=== PATIENT | male | born 1960 | race African-American/Black ===

== ENCOUNTER 2016-11-02 21:48 | Emergency (ER) | payer MEDICAID, OTHER ==
[~2016-11-02] VITALS: Ht 180.3 cm; Wt 77.3 kg
[~2016-11-02 21:48] MED LIST: QUET50TA PO
[2016-11-03] MEDS ORDERED: QUEtiapine FUMARATE 100 MG TABLET PO ONE (01:30)
[2016-11-03] MEDS ORDERED: HYDROCODONE/ACETAMINOPHEN 5-325 MG TABLET PO ONE (02:15)
[2016-11-03 02:44] VITALS: BP 134/69
== END 2016-11-03 02:47 | disposition home or self-care (01) ==
LOC: EMS 21:49
DX: S82.301A Unspecified fracture of lower end of right tibia, initial encounter for closed fracture (principal); S82.831A Other fracture of upper and lower end of right fibula, initial encounter for closed fracture; F17.210 Nicotine dependence, cigarettes, uncomplicated; W01.0XXA Fall on same level from slipping, tripping and stumbling without subsequent striking against object, initial encounter; Y93.89 Activity, other specified; Y92.89 Other specified places as the place of occurrence of the external cause; Y99.8 Other external cause status
CPT/HCPCS: 29515; 99284

== ENCOUNTER 2016-11-05 11:34 | Emergency (ER) | payer MEDICAID ==
[~2016-11-05] VITALS: Ht 180.3 cm; Wt 72.7 kg
[2016-11-05] MEDS ORDERED: ACETAMINOPHEN/CODEINE 300-30 MG TABLET PO ONE (13:15)
[2016-11-05 13:55] VITALS: BP 124/70
== END 2016-11-05 14:03 | disposition home or self-care (01) ==
LOC: EMS 11:35
DX: M25.471 Effusion, right ankle (principal); R26.2 Difficulty in walking, not elsewhere classified; F17.210 Nicotine dependence, cigarettes, uncomplicated
CPT/HCPCS: 29580; 99283

== ENCOUNTER 2016-12-10 17:49 | Emergency (ER) | payer MEDICAID ==
[~2016-12-10] VITALS: Ht 180.3 cm; Wt 73.6 kg
[2016-12-10 18:12] VITALS: BP 120/80
[2016-12-10] MEDS ORDERED: IBUPROFEN 800 MG TABLET PO ONE (19:00)
== END 2016-12-10 19:06 | disposition home or self-care (01) ==
LOC: EMS 17:52
DX: M25.571 Pain in right ankle and joints of right foot (principal); F17.210 Nicotine dependence, cigarettes, uncomplicated
CPT/HCPCS: 99283

== ENCOUNTER 2017-09-09 18:27 | Inpatient (IN) | payer MEDICAID ==
[~2017-09-09] VITALS: Ht 180.3 cm; Wt 70.3 kg
[2017-09-09] MEDS ORDERED: MAGNESIUM SULFATE 2 GM, MVI, ADULT NO.1 WITH VIT K 10 ML, THIAMINE HCL 100 MG, FOLIC AC... IV ONE ×5 (19:00)
[2017-09-09 19:37] LABS: BASOPHILS % (AUTO) 0.7 % (0.0-2.0); EOSINOPHILS % (AUTO) 0.1 % (1.0-6.0); HEMATOCRIT 35.8 % (41-53); LYMPHOCYTES # (AUTO) 0.6 K/uL (1.0-4.8); LYMPHOCYTES % (AUTO) 15.6 % (22.0-44.0); MEAN CORPUSCULAR HEMOGLOBIN 27.4 pg (26.0-34.0); MEAN CORPUSCULAR HGB CONC 33.7 G/dL (31.0-37.0); MEAN CORPUSCULAR VOLUME 81 fL (80-100); MONOCYTES # (AUTO) 0.3 K/uL (0.1-1.0); MONOCYTES % (AUTO) 9.1 % (2.0-9.0); NEUTROPHILS # (AUTO) 2.8 K/uL (1.8-7.7); NEUTROPHILS % (AUTO) 74.5 % (40.0-70.0); RED CELL DISTRIBUTION WIDTH 14.4 % (11.5-14.5)
[2017-09-09 19:43] LABS: PLATELET COUNT (AUTO) 71 K/uL (150-450)
[2017-09-09 20:04] LABS: ALANINE AMINOTRANSFERASE 59 U/L (12-78); ALBUMIN 3.8 g/dL (3.4-5.0); ALKALINE PHOSPHATASE 156 U/L (46-116); ANION GAP 14 mmol/L (8-16); ASPARTATE AMINOTRANSFERASE 149 U/L (15-37); BILIRUBIN,TOTAL 0.7 mg/dL (0.1-1.0); CALCIUM, TOTAL 8.7 mg/dL (8.8-10.5); CARBON DIOXIDE 25 mmol/L (22-29); CHLORIDE 85 mmol/L (98-107); CREATININE 0.67 mg/dL (0.60-1.30); GLOMERULAR FILTR. RATE CALC > 60 mL/min (>60); GLUCOSE,RANDOM 80 mg/dL (70-110); LIPASE 147 U/L (73-393); POTASSIUM 3.9 mmol/L (3.5-5.1); TOTAL PROTEIN, SERUM 8.3 g/dL (6.4-8.2); UREA NITROGEN, BLOOD 7 mg/dL (7-18)
[2017-09-09 20:11] LABS: SODIUM SERUM 124 mmol/L (136-145)
[2017-09-09] MEDS ORDERED: ACETAMINOPHEN 325 MG TABLET PO PRN (20:45)
[2017-09-09] MEDS ORDERED: 0.9% SODIUM CHLORIDE 10 ML SYRINGE IVP PRN (20:45)
[2017-09-09] MEDS ORDERED: ONDANSETRON HCL 4 MG/2 ML VIAL IVP PRN (20:45)
[2017-09-09 21:16] LABS: ANION GAP 16 mmol/L (8-16); CALCIUM, TOTAL 8.3 mg/dL (8.8-10.5); CARBON DIOXIDE 22 mmol/L (22-29); CHLORIDE 88 mmol/L (98-107); CREATININE 0.57 mg/dL (0.60-1.30); GLOMERULAR FILTR. RATE CALC > 60 mL/min (>60); GLUCOSE,RANDOM 67 mg/dL (70-110); POTASSIUM 3.5 mmol/L (3.5-5.1); SODIUM SERUM 126 mmol/L (136-145); UREA NITROGEN, BLOOD 8 mg/dL (7-18)
[2017-09-09 21:19] LABS: ALANINE AMINOTRANSFERASE 49 U/L (12-78); ALBUMIN 3.5 g/dL (3.4-5.0); ALKALINE PHOSPHATASE 142 U/L (46-116); ASPARTATE AMINOTRANSFERASE 127 U/L (15-37); BILIRUBIN,TOTAL 0.7 mg/dL (0.1-1.0); TOTAL PROTEIN, SERUM 7.5 g/dL (6.4-8.2)
[2017-09-09 21:45] VITALS: BP 117/85
[2017-09-09] MEDS ORDERED: MAGNESIUM SULFATE 2 GM, MVI, ADULT NO.1 WITH VIT K 10 ML, THIAMINE HCL 100 MG, FOLIC AC... IV SCH ×5 (22:45)
[2017-09-09] MEDS ORDERED: LORazepam 2 MG/ML VIAL IVP PRN (22:45)
[2017-09-09 23:13] LABS: CKMB RELATIVE INDEX 1.5 % (0.0-4.0); CREATINE KINASE MB 14.7 ng/mL (0-5); CREATINE KINASE, TOTAL 959 U/L (39-308)
[2017-09-10] VITALS: BP 127/80
[2017-09-10] MEDS ORDERED: MORPHINE SULFATE 10 MG/ML SYRINGE IVP PRN
[2017-09-10] MEDS ORDERED: ACETAMINOPHEN 650 MG/20.3 ML SOLUTION UDCUP PO PRN
[2017-09-10] MEDS ORDERED: ZOLPIDEM TARTRATE 10 MG TABLET PO PRN
[2017-09-10 01:00] VITALS: BP 186/121
[2017-09-10] MEDS: SODIUM CHLORIDE 0.9% 1,000 ML IV SCH ×3 (01:00→16:29)
[2017-09-10] MEDS: HYDROCODONE/ACETAMINOPHEN 5-325 MG TABLET PO PRN ×2 (01:00→12:32)
[2017-09-10 04:00] VITALS: BP 113/67
[2017-09-10 05:23] LABS: BASOPHILS % (AUTO) 0.6 % (0.0-2.0); EOSINOPHILS % (AUTO) 0.3 % (1.0-6.0); HEMOGLOBIN 10.6 g/dL (13.5-17.5); LYMPHOCYTES # (AUTO) 1.2 K/uL (1.0-4.8); LYMPHOCYTES % (AUTO) 25.4 % (22.0-44.0); MEAN CORPUSCULAR HEMOGLOBIN 27.7 pg (26.0-34.0); MEAN CORPUSCULAR HGB CONC 34.1 G/dL (31.0-37.0); MEAN CORPUSCULAR VOLUME 81 fL (80-100); MONOCYTES # (AUTO) 0.6 K/uL (0.1-1.0); MONOCYTES % (AUTO) 12.4 % (2.0-9.0); NEUTROPHILS # (AUTO) 2.9 K/uL (1.8-7.7); NEUTROPHILS % (AUTO) 61.3 % (40.0-70.0); PLATELET COUNT (AUTO) 61 K/uL (150-450); RED BLOOD CELL COUNT(AUTO) 3.82 MIL/uL (4.50-5.90); RED CELL DISTRIBUTION WIDTH 14.5 % (11.5-14.5)
[2017-09-10 05:49] LABS: ALANINE AMINOTRANSFERASE 46 U/L (12-78); ALBUMIN 3.3 g/dL (3.4-5.0); ALKALINE PHOSPHATASE 138 U/L (46-116); ANION GAP 13 mmol/L (8-16); ASPARTATE AMINOTRANSFERASE 119 U/L (15-37); BILIRUBIN,TOTAL 0.7 mg/dL (0.1-1.0); CALCIUM, TOTAL 8.1 mg/dL (8.8-10.5); CARBON DIOXIDE 25 mmol/L (22-29); CHLORIDE 91 mmol/L (98-107); CREATININE 0.72 mg/dL (0.60-1.30); GLOMERULAR FILTR. RATE CALC > 60 mL/min (>60); GLUCOSE,RANDOM 71 mg/dL (70-110); SODIUM SERUM 129 mmol/L (136-145); TOTAL PROTEIN, SERUM 7.1 g/dL (6.4-8.2); UREA NITROGEN, BLOOD 9 mg/dL (7-18)
[2017-09-10 08:00] VITALS: BP 151/91
[2017-09-10] MEDS: HEPARIN SODIUM,PORCINE 5,000 UNITS/ML VIAL SQ SCH ×3 (08:08→16:28)
[2017-09-10] MEDS ORDERED: PANTOPRAZOLE SODIUM 40 MG DR TABLET PO SCH (09:00)
[2017-09-10] MEDS ORDERED: PANTOPRAZOLE SODIUM 40 MG/VIAL IVP SCH (09:00)
[2017-09-10 12:00] VITALS: BP 144/83
[2017-09-10 16:00] VITALS: BP 136/83
[2017-09-10] MEDS ORDERED: QUEtiapine FUMARATE 100 MG TABLET PO SCH (16:00)
== END 2017-09-10 18:50 | disposition home or self-care (01) | DRG 815 ==
LOC: EMS 18:46 → ICU 21:00
PROVIDERS: ADMIT Internal Medicine; ATTEND Internal Medicine
DX: T68.XXXA Hypothermia, initial encounter (principal); E87.1 Hypo-osmolality and hyponatremia; F10.20 Alcohol dependence, uncomplicated; E86.0 Dehydration; F17.210 Nicotine dependence, cigarettes, uncomplicated; X31.XXXA Exposure to excessive natural cold, initial encounter; Z59.0 Homelessness
CPT/HCPCS: 72100; 82948; 83735; 87081; 93005; 96365; 99291; C9113; G0480; J1644; J3411; J3475; J3490; J7030

== ENCOUNTER 2017-09-14 12:23 | Inpatient (IN) | payer MEDICAID ==
[~2017-09-14] VITALS: Ht 170.2 cm; Wt 82.5 kg
[2017-09-14] MEDS ORDERED: LORazepam 2 MG/ML VIAL ONE (12:37)
[2017-09-14] MEDS ORDERED: IOVERSOL 350 MG/ML 100 ML VIAL ONE (12:43)
[2017-09-14 13:14] LABS: ANION GAP 13 mmol/L (8-16); CALCIUM, TOTAL 8.4 mg/dL (8.8-10.5); CARBON DIOXIDE 27 mmol/L (22-29); CHLORIDE 92 mmol/L (98-107); CREATININE 0.55 mg/dL (0.60-1.30); GLOMERULAR FILTR. RATE CALC > 60 mL/min (>60); GLUCOSE,RANDOM 221 mg/dL (70-110); POTASSIUM 3.3 mmol/L (3.5-5.1); SODIUM SERUM 132 mmol/L (136-145); UREA NITROGEN, BLOOD 5 mg/dL (7-18)
[2017-09-14 13:19] LABS: HEMATOCRIT 32.6 % (41-53); HEMOGLOBIN 10.9 g/dL (13.5-17.5); MEAN CORPUSCULAR HEMOGLOBIN 27.5 pg (26.0-34.0); MEAN CORPUSCULAR HGB CONC 33.4 G/dL (31.0-37.0); MEAN CORPUSCULAR VOLUME 82 fL (80-100); RED BLOOD CELL COUNT(AUTO) 3.97 MIL/uL (4.50-5.90); RED CELL DISTRIBUTION WIDTH 14.9 % (11.5-14.5)
[2017-09-14 13:20] LABS: AMMONIA 20 umol/L (11-32)
[2017-09-14 13:23] LABS: B-TYPE NATRIURETIC PEPTIDE 11 pg/mL (0-100); TROPONIN I < 0.02 ng/mL (0.00-0.05)
[2017-09-14 13:25] LABS: INR 1.4 (0.9-1.1); PROTHROMBIN TIME 14.1 SEC (9.4-11.6)
[2017-09-14] MEDS ORDERED: SODIUM CHLORIDE 0.9% 1,000 ML IV ONE ×2 (13:30→15:30)
[2017-09-14 13:38] LABS: ALANINE AMINOTRANSFERASE 73 U/L (12-78); ALBUMIN 3.6 g/dL (3.4-5.0); ALKALINE PHOSPHATASE 166 U/L (46-116); ASPARTATE AMINOTRANSFERASE 204 U/L (15-37); BILIRUBIN,TOTAL 0.7 mg/dL (0.1-1.0); CKMB RELATIVE INDEX 0.8 % (0.0-4.0); CREATINE KINASE MB 5.1 ng/mL (0-5); CREATINE KINASE, TOTAL 627 U/L (39-308)
[2017-09-14 13:39] LABS: BASOPHILS % (MANUAL) 1 % (0-2); EOSINOPHILS % (MANUAL) 1 % (1-6); LYMPHOCYTES % (MANUAL) 23 % (22-44); MONOCYTES % (MANUAL) 11 % (2-9); SEGMENTED NEUTROPHILS % 64 % (40-70)
[2017-09-14 13:42] LABS: PLATELET COUNT (AUTO) 70 K/uL (150-450)
[2017-09-14 13:46] LABS: LACTIC ACID 4.2 mmol/L (0.4-2.0)
[2017-09-14 14:29] LABS: ERYTHROCYTE SEDIMENTATION RATE 25 MM/HR (0-15)
[2017-09-14 14:51] LABS: AMPHET/METH SCREEN,URINE NEGATIVE (NEGATIVE); BARBITURATE SCREEN, URINE NEGATIVE (NEGATIVE); BENZODIAZEPINES SCREEN,URINE NEGATIVE (NEGATIVE); CANNABINOID SCREEN,URINE NEGATIVE (NEGATIVE); COCAINE SCREEN,URINE NEGATIVE (NEGATIVE); METHADONE SCREEN, URINE NEGATIVE (NEGATIVE); OPIATE SCREEN,URINE NEGATIVE (NEGATIVE); PHENCYCLIDINE SCREEN,URINE NEGATIVE (NEGATIVE)
[2017-09-14 15:10] LABS: APPEARANCE,URINE CLEAR (CLEAR); BILIRUBIN,URINE NEGATIVE (NEGATIVE); GLUCOSE, URINE (UA) >=1000 mg/dL (NEGATIVE); KETONES,URINE 15 mg/dL (NEGATIVE); LEUKOCYTE ESTERASE ,URINE SMALL (NEGATIVE); OCCULT BLOOD,URINE NEGATIVE (NEGATIVE); PROTEIN,URINE NEGATIVE (NEGATIVE); UROBILINOGEN,URINE 0.2 mg/dL (<=1.0)
[2017-09-14] MEDS ORDERED: VANCOMYCIN HCL 1 GM/D5% WATER 200 ML IV ONE (15:30)
[2017-09-14 16:05] LABS: NITRATE,URINE NEGATIVE (NEGATIVE); RBC,URINE 0-2 /HPF (0-2)
[2017-09-14 16:06] LABS: BACTERIA,URINE Few /HPF (None Seen); SQUAMOUS EPITHELIAL CELL,UR Few /LPF (None Seen)
[2017-09-14] MEDS ORDERED: MAGNESIUM HYDROXIDE SUSPENSION 30 ML UDCUP PO PRN (16:15)
[2017-09-14] MEDS ORDERED: ONDANSETRON HCL 4 MG/2 ML VIAL IVP PRN (16:15)
[2017-09-14] MEDS ORDERED: HYDROCODONE/ACETAMINOPHEN 5-325 MG TABLET PO PRN (16:15)
[2017-09-14] MEDS ORDERED: ACETAMINOPHEN 325 MG TABLET PO PRN (16:15)
[2017-09-14] MEDS ORDERED: POTASSIUM CHLORIDE 20 MEQ ER TABLET PO PRN (16:15)
[2017-09-14] MEDS ORDERED: MAGNESIUM SULFATE 2 GM, MVI, ADULT NO.1 WITH VIT K 10 ML, THIAMINE HCL 100 MG, FOLIC AC... IV ONE ×5 (16:15)
[2017-09-14] MEDS ORDERED: ZOLPIDEM TARTRATE 5 MG TABLET PO PRN (16:15)
[2017-09-14] MEDS ORDERED: BISACODYL 10 MG RECTAL RECTAL SUPPOSITORY PR PRN (16:15)
[2017-09-14 18:38] VITALS: BP 113/72
[2017-09-14 19:38] VITALS: BP 103/71
[2017-09-14] MEDS ORDERED: SODIUM CHLORIDE 0.9% 50 ML ONE ×2 (19:59→21:41)
[2017-09-14] MEDS: DOCUSATE SODIUM 100 MG CAPSULE PO SCH (20:05)
[2017-09-14] MEDS: POTASSIUM CHL 10 MEQ/WATER 50 ML IV PRN ×2 (20:11→21:43)
[2017-09-14 23:58] VITALS: BP 111/54
[2017-09-15] MEDS: HEPARIN SODIUM,PORCINE 5,000 UNITS/ML VIAL SQ SCH ×4 (00:14→16:00)
[2017-09-15] MEDS: POTASSIUM CHL 10 MEQ/WATER 50 ML IV PRN (00:14)
[2017-09-15 04:48] VITALS: BP 122/65
[2017-09-15 06:22] LABS: BASOPHILS % (AUTO) 0.9 % (0.0-2.0); EOSINOPHILS % (AUTO) 0.4 % (1.0-6.0); HEMATOCRIT 26.1 % (41-53); HEMOGLOBIN 9.1 g/dL (13.5-17.5); LYMPHOCYTES % (AUTO) 21.4 % (22.0-44.0); MEAN CORPUSCULAR HEMOGLOBIN 28.3 pg (26.0-34.0); MEAN CORPUSCULAR HGB CONC 34.9 G/dL (31.0-37.0); MEAN CORPUSCULAR VOLUME 81 fL (80-100); MONOCYTES # (AUTO) 0.5 K/uL (0.1-1.0); MONOCYTES % (AUTO) 10.2 % (2.0-9.0); NEUTROPHILS # (AUTO) 3.2 K/uL (1.8-7.7); NEUTROPHILS % (AUTO) 67.1 % (40.0-70.0); PLATELET COUNT (AUTO) 67 K/uL (150-450); RED BLOOD CELL COUNT(AUTO) 3.21 MIL/uL (4.50-5.90); RED CELL DISTRIBUTION WIDTH 14.7 % (11.5-14.5)
[2017-09-15] MEDS: MORPHINE SULFATE 2 MG/ML SYRINGE IVP PRN ×2 (06:45→10:56)
[2017-09-15 06:56] LABS: ANION GAP 13 mmol/L (8-16); CARBON DIOXIDE 23 mmol/L (22-29); CHLORIDE 99 mmol/L (98-107); CREATININE 0.64 mg/dL (0.60-1.30); GLOMERULAR FILTR. RATE CALC > 60 mL/min (>60); GLUCOSE,RANDOM 71 mg/dL (70-110); POTASSIUM 3.9 mmol/L (3.5-5.1); SODIUM SERUM 135 mmol/L (136-145); UREA NITROGEN, BLOOD 6 mg/dL (7-18)
[2017-09-15 07:26] VITALS: BP 121/76
[2017-09-15] MEDS ORDERED: CefTRIAXone SODIUM 1 GM in DEXTROSE 5%-WATER 10 ML IV SCH (08:00)
[2017-09-15] MEDS: DOCUSATE SODIUM 100 MG CAPSULE PO SCH (08:46)
[2017-09-15] MEDS ORDERED: PANTOPRAZOLE SODIUM 40 MG DR TABLET PO SCH (09:00)
[2017-09-15 10:51] VITALS: BP 123/75
[2017-09-15 15:48] VITALS: BP 135/87
== END 2017-09-15 17:55 | disposition home or self-care (01) | DRG 775 ==
LOC: EMS 12:24 → 5N 16:21
PROVIDERS: ADMIT Internal Medicine; ATTEND Internal Medicine
DX: F10.129 Alcohol abuse with intoxication, unspecified (principal); G92 Toxic encephalopathy; T68.XXXA Hypothermia, initial encounter; D61.818 Other pancytopenia; D68.9 Coagulation defect, unspecified; E87.2 Acidosis; D69.59 Other secondary thrombocytopenia; E87.1 Hypo-osmolality and hyponatremia; E87.6 Hypokalemia; F20.9 Schizophrenia, unspecified; K70.9 Alcoholic liver disease, unspecified; F17.210 Nicotine dependence, cigarettes, uncomplicated; N39.0 Urinary tract infection, site not specified; Y90.8 Blood alcohol level of 240 mg/100 ml or more; Z59.0 Homelessness; Z79.899 Other long term (current) drug therapy
CPT/HCPCS: 51702; 70496; 72125; 83605; 85651; 87040; 87081; 87086; 87205; 93005; 96361; 96365; 96366; 96368; 99291; G0480; J0696; J1644; J2060; J2270; J3370; J3411; J3475; J3480; J3490; J7030; J7050; J7060

== ENCOUNTER 2017-10-21 07:31 | Emergency (ER) | payer MEDICAID ==
[~2017-10-21] VITALS: Ht 177.8 cm; Wt 77.3 kg
[2017-10-21 07:47] LABS: GLUCOSE,POINT OF CARE 63 MG/DL (70-110)
[2017-10-21] MEDS ORDERED: BACITRACIN 0.9 GM PACKET OINTMENT TP ONE (08:30)
[2017-10-21 13:50] VITALS: BP 120/72
== END 2017-10-21 14:20 | disposition home or self-care (01) ==
LOC: EMS 07:32
DX: F10.229 Alcohol dependence with intoxication, unspecified (principal); M25.571 Pain in right ankle and joints of right foot; F17.210 Nicotine dependence, cigarettes, uncomplicated; Y90.9 Presence of alcohol in blood, level not specified
CPT/HCPCS: 82962; 99284

== ENCOUNTER 2017-10-21 19:58 | Emergency (ER) | payer MEDICAID | END 2017-10-21 20:37 | disposition left against medical advice (07) | LOC: EMS 19:59 | DX: M54.9 Dorsalgia, unspecified (principal); Z53.21 Procedure and treatment not carried out due to patient leaving prior to being seen by health care provider ==

== ENCOUNTER 2017-10-31 16:19 | Inpatient (IN) | payer MEDICAID ==
[~2017-10-31] VITALS: Ht 167.6 cm; Wt 71.0 kg
[2017-10-31] MEDS ORDERED: SODIUM CHLORIDE 0.9% 1,000 ML IV ONE ×2 (17:00→17:45)
[2017-10-31 17:12] LABS: BASOPHILS % (AUTO) 0.3 % (0.0-2.0); EOSINOPHILS % (AUTO) 0.4 % (1.0-6.0); HEMATOCRIT 24.8 % (41-53); HEMOGLOBIN 8.7 g/dL (13.5-17.5); LYMPHOCYTES # (AUTO) 1.5 K/uL (1.0-4.8); LYMPHOCYTES % (AUTO) 17.9 % (22.0-44.0); MEAN CORPUSCULAR HEMOGLOBIN 29.1 pg (26.0-34.0); MEAN CORPUSCULAR HGB CONC 35.1 G/dL (31.0-37.0); MEAN CORPUSCULAR VOLUME 83 fL (80-100); MONOCYTES # (AUTO) 1.2 K/uL (0.1-1.0); MONOCYTES % (AUTO) 14.8 % (2.0-9.0); NEUTROPHILS # (AUTO) 5.5 K/uL (1.8-7.7); NEUTROPHILS % (AUTO) 66.6 % (40.0-70.0); RED BLOOD CELL COUNT(AUTO) 2.99 MIL/uL (4.50-5.90); RED CELL DISTRIBUTION WIDTH 15.9 % (11.5-14.5)
[2017-10-31 17:24] LABS: ALANINE AMINOTRANSFERASE 61 U/L (12-78); ALBUMIN 3.2 g/dL (3.4-5.0); ALKALINE PHOSPHATASE 172 U/L (46-116); ASPARTATE AMINOTRANSFERASE 127 U/L (15-37); BILIRUBIN,TOTAL 1.7 mg/dL (0.1-1.0); CALCIUM, TOTAL 8.5 mg/dL (8.8-10.5); CARBON DIOXIDE 23 mmol/L (22-29); CHLORIDE 78 mmol/L (98-107); CREATININE 0.83 mg/dL (0.60-1.30); GLOMERULAR FILTR. RATE CALC > 60 mL/min (>60); GLUCOSE,RANDOM 69 mg/dL (70-110); LIPASE 751 U/L (73-393); POTASSIUM 3.1 mmol/L (3.5-5.1); UREA NITROGEN, BLOOD 7 mg/dL (7-18)
[2017-10-31 17:35] LABS: PLATELET COUNT (AUTO) 93 K/uL (150-450); PLATELET MORPHOLOGY COMMENT LARGE PLTS PRESENT
[2017-10-31 17:37] LABS: ANION GAP 15 mmol/L (8-16); SODIUM SERUM 116 mmol/L (136-145)
[2017-10-31] MEDS ORDERED: QUEtiapine FUMARATE 25 MG TABLET PO ONE (18:15)
[2017-10-31] MEDS ORDERED: POTASSIUM CHLORIDE 20 MEQ ER TABLET PO ONE (18:30)
[2017-10-31] MEDS ORDERED: 0.9% SODIUM CHLORIDE 10 ML SYRINGE IVP PRN (19:15)
[2017-10-31] MEDS ORDERED: ACETAMINOPHEN 325 MG TABLET PO PRN ×2 (19:15→21:15)
[2017-10-31] MEDS ORDERED: ONDANSETRON HCL 4 MG/2 ML VIAL IVP PRN ×2 (19:15→21:15)
[2017-10-31 19:28] LABS: GLUCOSE,POINT OF CARE 96 MG/DL (70-110)
[2017-10-31 21:11] VITALS: BP 120/80
[2017-10-31] MEDS ORDERED: MAGNESIUM SULFATE 2 GM in DEXTROSE 5%-WATER 50 ML IV PRN (21:15)
[2017-10-31] MEDS ORDERED: MAGNESIUM OXIDE 400 MG TABLET PO PRN (21:15)
[2017-10-31] MEDS ORDERED: ALBUTEROL SULFATE 2.5 MG/0.5 ML NEB SOLUTION NEB PRN (21:15)
[2017-10-31] MEDS ORDERED: LORazepam 2 MG/ML VIAL IVP PRN (21:15)
[2017-10-31] MEDS ORDERED: MAGNESIUM SULFATE 4 GM/WATER 100 ML IV PRN (21:15)
[2017-10-31] MEDS ORDERED: MAGNESIUM HYDROXIDE SUSPENSION 30 ML UDCUP PO PRN (21:15)
[2017-10-31] MEDS: SODIUM CHLORIDE 0.9% 1,000 ML IV SCH (21:56)
[2017-10-31 22:33] LABS: ALBUMIN 2.8 g/dL (3.4-5.0)
[2017-10-31 22:59] LABS: MAGNESIUM 1.4 mg/dL (1.80-2.40)
[2017-11-01 00:02] VITALS: BP 97/53
[2017-11-01 04:21] VITALS: BP 110/73
[2017-11-01 07:28] LABS: BASOPHILS % (AUTO) 0.7 % (0.0-2.0); EOSINOPHILS % (AUTO) 0.6 % (1.0-6.0); HEMOGLOBIN 7.9 g/dL (13.5-17.5); LYMPHOCYTES # (AUTO) 1.1 K/uL (1.0-4.8); LYMPHOCYTES % (AUTO) 16.3 % (22.0-44.0); MEAN CORPUSCULAR HEMOGLOBIN 29.9 pg (26.0-34.0); MEAN CORPUSCULAR HGB CONC 35.7 G/dL (31.0-37.0); MEAN CORPUSCULAR VOLUME 84 fL (80-100); MONOCYTES # (AUTO) 0.8 K/uL (0.1-1.0); MONOCYTES % (AUTO) 12.5 % (2.0-9.0); NEUTROPHILS # (AUTO) 4.6 K/uL (1.8-7.7); NEUTROPHILS % (AUTO) 69.9 % (40.0-70.0); PLATELET COUNT (AUTO) 95 K/uL (150-450); RED BLOOD CELL COUNT(AUTO) 2.63 MIL/uL (4.50-5.90); RED CELL DISTRIBUTION WIDTH 16.4 % (11.5-14.5)
[2017-11-01 07:38] LABS: ANION GAP 10 mmol/L (8-16); CALCIUM, TOTAL 8.2 mg/dL (8.8-10.5); CARBON DIOXIDE 27 mmol/L (22-29); CHLORIDE 87 mmol/L (98-107); CREATININE 0.77 mg/dL (0.60-1.30); GLOMERULAR FILTR. RATE CALC > 60 mL/min (>60); GLUCOSE,RANDOM 91 mg/dL (70-110); POTASSIUM 3.2 mmol/L (3.5-5.1); UREA NITROGEN, BLOOD 5 mg/dL (7-18)
[2017-11-01 07:44] VITALS: BP 110/57
[2017-11-01] MEDS: PANTOPRAZOLE SODIUM 40 MG DR TABLET PO SCH (07:47)
[2017-11-01] MEDS: MULTIVITAMINS WITH MINERALS, THERAPEUTIC TABLET PO SCH (07:47)
[2017-11-01] MEDS: DOCUSATE SODIUM 100 MG CAPSULE PO SCH ×2 (07:47→21:00)
[2017-11-01 07:57] LABS: SODIUM SERUM 124 mmol/L (136-145)
[2017-11-01 07:58] LABS: GLUCOMETER DEV NAME(LOC) 5S 1M; GLUCOSE,POINT OF CARE 126 MG/DL (70-110)
[2017-11-01] MEDS: QUEtiapine FUMARATE 25 MG TABLET PO SCH ×2 (10:14→21:01)
[2017-11-01 11:21] VITALS: BP 116/72
[2017-11-01] MEDS: SODIUM CHLORIDE 0.9% 1,000 ML IV SCH (12:27)
[2017-11-01] MEDS: POTASSIUM CHLORIDE 20 MEQ ER TABLET PO PRN (13:52)
[2017-11-01 15:39] VITALS: BP 117/74
[2017-11-01 20:04] VITALS: BP 116/76
[2017-11-02 00:11] VITALS: BP 122/71
[2017-11-02] MEDS: SODIUM CHLORIDE 0.9% 1,000 ML IV SCH ×2 (05:22→21:07)
[2017-11-02 05:32] VITALS: BP 113/68
[2017-11-02 07:27] VITALS: BP 118/71
[2017-11-02] MEDS: QUEtiapine FUMARATE 25 MG TABLET PO SCH ×2 (08:54→21:07)
[2017-11-02] MEDS: MULTIVITAMINS WITH MINERALS, THERAPEUTIC TABLET PO SCH (08:54)
[2017-11-02] MEDS: DOCUSATE SODIUM 100 MG CAPSULE PO SCH ×2 (08:54→21:00)
[2017-11-02] MEDS: PANTOPRAZOLE SODIUM 40 MG DR TABLET PO SCH (08:55)
[2017-11-02 12:01] VITALS: BP 125/81
[2017-11-02 15:20] LABS: EOSINOPHILS % (AUTO) 0.4 % (1.0-6.0); HEMATOCRIT 25.7 % (41-53); HEMOGLOBIN 8.8 g/dL (13.5-17.5); LYMPHOCYTES # (AUTO) 1.2 K/uL (1.0-4.8); LYMPHOCYTES % (AUTO) 16.1 % (22.0-44.0); MEAN CORPUSCULAR HEMOGLOBIN 29.1 pg (26.0-34.0); MEAN CORPUSCULAR VOLUME 86 fL (80-100); MONOCYTES # (AUTO) 1.1 K/uL (0.1-1.0); MONOCYTES % (AUTO) 13.9 % (2.0-9.0); NEUTROPHILS # (AUTO) 5.3 K/uL (1.8-7.7); NEUTROPHILS % (AUTO) 68.6 % (40.0-70.0); PLATELET COUNT (AUTO) 132 K/uL (150-450); RED BLOOD CELL COUNT(AUTO) 3.01 MIL/uL (4.50-5.90)
[2017-11-02 15:29] VITALS: BP 129/85
[2017-11-02 15:35] LABS: ANION GAP 5 mmol/L (8-16); CALCIUM, TOTAL 8.6 mg/dL (8.8-10.5); CARBON DIOXIDE 29 mmol/L (22-29); CHLORIDE 94 mmol/L (98-107); CREATININE 0.85 mg/dL (0.60-1.30); GLOMERULAR FILTR. RATE CALC > 60 mL/min (>60); GLUCOSE,RANDOM 111 mg/dL (70-110); POTASSIUM 3.5 mmol/L (3.5-5.1); SODIUM SERUM 128 mmol/L (136-145); UREA NITROGEN, BLOOD 7 mg/dL (7-18)
[2017-11-02 15:41] LABS: ALANINE AMINOTRANSFERASE 44 U/L (12-78); ALBUMIN 2.9 g/dL (3.4-5.0); ALKALINE PHOSPHATASE 191 U/L (46-116); ASPARTATE AMINOTRANSFERASE 61 U/L (15-37); BILIRUBIN,TOTAL 0.7 mg/dL (0.1-1.0); TOTAL PROTEIN, SERUM 6.8 g/dL (6.4-8.2)
[2017-11-02 19:50] VITALS: BP 110/83
[2017-11-02] MEDS: LORazepam 2 MG/ML VIAL IVP PRN (21:08)
[2017-11-03] VITALS (7 sets, daily range): BP systolic 131–153; BP diastolic 62–105
[2017-11-03] MEDS: LORazepam 2 MG/ML VIAL IVP PRN ×3 (03:46→21:26)
[2017-11-03 06:30] LABS: EOSINOPHILS % (AUTO) 0.7 % (1.0-6.0); HEMATOCRIT 23.6 % (41-53); HEMOGLOBIN 8.2 g/dL (13.5-17.5); LYMPHOCYTES # (AUTO) 1.2 K/uL (1.0-4.8); LYMPHOCYTES % (AUTO) 17.3 % (22.0-44.0); MEAN CORPUSCULAR HEMOGLOBIN 30.1 pg (26.0-34.0); MEAN CORPUSCULAR HGB CONC 34.8 G/dL (31.0-37.0); MEAN CORPUSCULAR VOLUME 86 fL (80-100); MONOCYTES % (AUTO) 15.4 % (2.0-9.0); NEUTROPHILS # (AUTO) 4.4 K/uL (1.8-7.7); NEUTROPHILS % (AUTO) 65.6 % (40.0-70.0); PLATELET COUNT (AUTO) 142 K/uL (150-450); RED BLOOD CELL COUNT(AUTO) 2.74 MIL/uL (4.50-5.90); RED CELL DISTRIBUTION WIDTH 16.5 % (11.5-14.5)
[2017-11-03 06:46] LABS: ALANINE AMINOTRANSFERASE 41 U/L (12-78); ALBUMIN 2.8 g/dL (3.4-5.0); ALKALINE PHOSPHATASE 142 U/L (46-116); ANION GAP 7 mmol/L (8-16); ASPARTATE AMINOTRANSFERASE 54 U/L (15-37); BILIRUBIN,TOTAL 0.8 mg/dL (0.1-1.0); CALCIUM, TOTAL 8.6 mg/dL (8.8-10.5); CARBON DIOXIDE 27 mmol/L (22-29); CHLORIDE 95 mmol/L (98-107); CREATININE 0.72 mg/dL (0.60-1.30); GLOMERULAR FILTR. RATE CALC > 60 mL/min (>60); GLUCOSE,RANDOM 89 mg/dL (70-110); POTASSIUM 3.1 mmol/L (3.5-5.1); SODIUM SERUM 129 mmol/L (136-145); TOTAL PROTEIN, SERUM 6.7 g/dL (6.4-8.2); UREA NITROGEN, BLOOD 4 mg/dL (7-18)
[2017-11-03] MEDS: QUEtiapine FUMARATE 25 MG TABLET PO SCH ×2 (09:00→20:26)
[2017-11-03] MEDS: PANTOPRAZOLE SODIUM 40 MG DR TABLET PO SCH (09:00)
[2017-11-03] MEDS: MULTIVITAMINS WITH MINERALS, THERAPEUTIC TABLET PO SCH (09:00)
[2017-11-03] MEDS: DOCUSATE SODIUM 100 MG CAPSULE PO SCH ×2 (09:00→20:26)
[2017-11-03] MEDS: SODIUM CHLORIDE 0.9% 1,000 ML IV SCH (14:34)
[2017-11-03] MEDS: ChlordiazePOXIDE HCL 25 MG CAPSULE PO SCH ×3 (15:09→23:46)
[2017-11-03] MEDS: POTASSIUM CHL 10 MEQ/WATER 50 ML IV PRN ×3 (15:20→18:20)
[2017-11-03] MEDS ORDERED: ChlordiazePOXIDE HCL 25 MG CAPSULE PO SCH (18:00)
[2017-11-04] MEDS: POTASSIUM CHL 10 MEQ/WATER 50 ML IV PRN ×3 (01:19→04:12)
[2017-11-04 04:18] VITALS: BP 125/86
[2017-11-04] MEDS: ChlordiazePOXIDE HCL 25 MG CAPSULE PO SCH ×4 (05:35→23:59)
[2017-11-04] MEDS: SODIUM CHLORIDE 0.9% 1,000 ML IV SCH ×2 (05:36→14:29)
[2017-11-04 06:32] LABS: BASOPHILS % (AUTO) 1.1 % (0.0-2.0); EOSINOPHILS % (AUTO) 0.9 % (1.0-6.0); HEMATOCRIT 26.2 % (41-53); HEMOGLOBIN 8.8 g/dL (13.5-17.5); LYMPHOCYTES # (AUTO) 0.9 K/uL (1.0-4.8); LYMPHOCYTES % (AUTO) 19.5 % (22.0-44.0); MEAN CORPUSCULAR HEMOGLOBIN 29.2 pg (26.0-34.0); MEAN CORPUSCULAR HGB CONC 33.7 G/dL (31.0-37.0); MEAN CORPUSCULAR VOLUME 87 fL (80-100); MONOCYTES # (AUTO) 0.8 K/uL (0.1-1.0); MONOCYTES % (AUTO) 17.8 % (2.0-9.0); NEUTROPHILS # (AUTO) 2.9 K/uL (1.8-7.7); NEUTROPHILS % (AUTO) 60.7 % (40.0-70.0); PLATELET COUNT (AUTO) 157 K/uL (150-450); RED BLOOD CELL COUNT(AUTO) 3.02 MIL/uL (4.50-5.90)
[2017-11-04 06:49] LABS: ALANINE AMINOTRANSFERASE 44 U/L (12-78); ALBUMIN 2.8 g/dL (3.4-5.0); ALKALINE PHOSPHATASE 137 U/L (46-116); ANION GAP 7 mmol/L (8-16); ASPARTATE AMINOTRANSFERASE 75 U/L (15-37); BILIRUBIN,TOTAL 0.6 mg/dL (0.1-1.0); CALCIUM, TOTAL 8.7 mg/dL (8.8-10.5); CARBON DIOXIDE 25 mmol/L (22-29); CHLORIDE 97 mmol/L (98-107); CREATININE 0.71 mg/dL (0.60-1.30); GLOMERULAR FILTR. RATE CALC > 60 mL/min (>60); GLUCOSE,RANDOM 111 mg/dL (70-110); SODIUM SERUM 129 mmol/L (136-145); TOTAL PROTEIN, SERUM 6.8 g/dL (6.4-8.2); UREA NITROGEN, BLOOD 4 mg/dL (7-18)
[2017-11-04 07:45] VITALS: BP 133/74
[2017-11-04] MEDS: PANTOPRAZOLE SODIUM 40 MG DR TABLET PO SCH (08:07)
[2017-11-04] MEDS: MULTIVITAMINS WITH MINERALS, THERAPEUTIC TABLET PO SCH (08:08)
[2017-11-04] MEDS: DOCUSATE SODIUM 100 MG CAPSULE PO SCH ×2 (08:08→20:23)
[2017-11-04] MEDS: QUEtiapine FUMARATE 25 MG TABLET PO SCH (08:15)
[2017-11-04 12:02] VITALS: BP 136/92
[2017-11-04 15:59] VITALS: BP 140/80
[2017-11-04 19:14] VITALS: BP 131/87
[2017-11-04 23:22] VITALS: BP 129/80
[2017-11-05 04:07] VITALS: BP 124/82
[2017-11-05] MEDS: SODIUM CHLORIDE 0.9% 1,000 ML IV SCH (05:21)
[2017-11-05] MEDS: ChlordiazePOXIDE HCL 25 MG CAPSULE PO SCH ×2 (05:22→12:00)
[2017-11-05 06:36] LABS: BASOPHILS % (AUTO) 1.1 % (0.0-2.0); EOSINOPHILS % (AUTO) 1.2 % (1.0-6.0); HEMATOCRIT 27.7 % (41-53); HEMOGLOBIN 9.4 g/dL (13.5-17.5); LYMPHOCYTES # (AUTO) 0.8 K/uL (1.0-4.8); MEAN CORPUSCULAR HGB CONC 33.8 G/dL (31.0-37.0); MEAN CORPUSCULAR VOLUME 86 fL (80-100); MONOCYTES # (AUTO) 0.8 K/uL (0.1-1.0); MONOCYTES % (AUTO) 16.5 % (2.0-9.0); NEUTROPHILS # (AUTO) 2.9 K/uL (1.8-7.7); NEUTROPHILS % (AUTO) 63.2 % (40.0-70.0); PLATELET COUNT (AUTO) 188 K/uL (150-450); RED BLOOD CELL COUNT(AUTO) 3.23 MIL/uL (4.50-5.90); RED CELL DISTRIBUTION WIDTH 16.7 % (11.5-14.5)
[2017-11-05 06:59] LABS: ALANINE AMINOTRANSFERASE 46 U/L (12-78); ALBUMIN 2.7 g/dL (3.4-5.0); ALKALINE PHOSPHATASE 133 U/L (46-116); ANION GAP 8 mmol/L (8-16); ASPARTATE AMINOTRANSFERASE 67 U/L (15-37); BILIRUBIN,TOTAL 0.5 mg/dL (0.1-1.0); CALCIUM, TOTAL 8.7 mg/dL (8.8-10.5); CARBON DIOXIDE 25 mmol/L (22-29); CHLORIDE 97 mmol/L (98-107); CREATININE 0.77 mg/dL (0.60-1.30); GLOMERULAR FILTR. RATE CALC > 60 mL/min (>60); GLUCOSE,RANDOM 104 mg/dL (70-110); POTASSIUM 3.4 mmol/L (3.5-5.1); SODIUM SERUM 130 mmol/L (136-145); TOTAL PROTEIN, SERUM 6.9 g/dL (6.4-8.2); UREA NITROGEN, BLOOD 5 mg/dL (7-18)
[2017-11-05 07:20] VITALS: BP 114/72
[2017-11-05] MEDS: DOCUSATE SODIUM 100 MG CAPSULE PO SCH ×2 (08:02→20:50)
[2017-11-05] MEDS: PANTOPRAZOLE SODIUM 40 MG DR TABLET PO SCH (08:02)
[2017-11-05] MEDS: MULTIVITAMINS WITH MINERALS, THERAPEUTIC TABLET PO SCH (08:02)
[2017-11-05] MEDS: POTASSIUM CHLORIDE 20 MEQ ER TABLET PO PRN (08:03)
[2017-11-05 11:07] VITALS: BP 105/64
[2017-11-05 15:33] VITALS: BP 114/68
[2017-11-05 19:34] VITALS: BP 116/64
[2017-11-05 23:36] VITALS: BP 105/66
[2017-11-06] VITALS (7 sets, daily range): BP systolic 112–128; BP diastolic 66–78
[2017-11-06] MEDS: SODIUM CHLORIDE 0.9% 1,000 ML IV SCH (06:03)
[2017-11-06 06:09] LABS: BASOPHILS % (AUTO) 1.3 % (0.0-2.0); EOSINOPHILS % (AUTO) 1.2 % (1.0-6.0); HEMATOCRIT 25.2 % (41-53); HEMOGLOBIN 8.7 g/dL (13.5-17.5); LYMPHOCYTES # (AUTO) 1.1 K/uL (1.0-4.8); LYMPHOCYTES % (AUTO) 19.5 % (22.0-44.0); MEAN CORPUSCULAR HEMOGLOBIN 29.6 pg (26.0-34.0); MEAN CORPUSCULAR HGB CONC 34.3 G/dL (31.0-37.0); MEAN CORPUSCULAR VOLUME 86 fL (80-100); MONOCYTES # (AUTO) 1.1 K/uL (0.1-1.0); MONOCYTES % (AUTO) 20.4 % (2.0-9.0); NEUTROPHILS # (AUTO) 3.1 K/uL (1.8-7.7); NEUTROPHILS % (AUTO) 57.6 % (40.0-70.0); PLATELET COUNT (AUTO) 185 K/uL (150-450); RED BLOOD CELL COUNT(AUTO) 2.93 MIL/uL (4.50-5.90); RED CELL DISTRIBUTION WIDTH 16.8 % (11.5-14.5)
[2017-11-06 06:28] LABS: ALANINE AMINOTRANSFERASE 44 U/L (12-78); ALBUMIN 2.7 g/dL (3.4-5.0); ALKALINE PHOSPHATASE 138 U/L (46-116); ANION GAP 8 mmol/L (8-16); ASPARTATE AMINOTRANSFERASE 69 U/L (15-37); BILIRUBIN,TOTAL 0.5 mg/dL (0.1-1.0); CALCIUM, TOTAL 8.8 mg/dL (8.8-10.5); CARBON DIOXIDE 24 mmol/L (22-29); CHLORIDE 99 mmol/L (98-107); CREATININE 0.76 mg/dL (0.60-1.30); GLOMERULAR FILTR. RATE CALC > 60 mL/min (>60); GLUCOSE,RANDOM 89 mg/dL (70-110); POTASSIUM 3.9 mmol/L (3.5-5.1); SODIUM SERUM 131 mmol/L (136-145); TOTAL PROTEIN, SERUM 6.6 g/dL (6.4-8.2); UREA NITROGEN, BLOOD 6 mg/dL (7-18)
[2017-11-06] MEDS: PANTOPRAZOLE SODIUM 40 MG DR TABLET PO SCH (08:16)
[2017-11-06] MEDS: MULTIVITAMINS WITH MINERALS, THERAPEUTIC TABLET PO SCH (08:16)
[2017-11-06] MEDS: DOCUSATE SODIUM 100 MG CAPSULE PO SCH ×2 (08:17→20:23)
[2017-11-06] MEDS ORDERED: DSS100 PO (09:58)
[2017-11-06] MEDS ORDERED: PANT40TA25 PO (09:58)
[2017-11-06] MEDS ORDERED: MULT-248 PO (09:58)
[2017-11-07 03:26] VITALS: BP 128/79
[2017-11-07 06:03] LABS: BASOPHILS % (AUTO) 1.9 % (0.0-2.0); EOSINOPHILS % (AUTO) 1.7 % (1.0-6.0); HEMATOCRIT 24.1 % (41-53); HEMOGLOBIN 8.1 g/dL (13.5-17.5); LYMPHOCYTES # (AUTO) 0.8 K/uL (1.0-4.8); LYMPHOCYTES % (AUTO) 16.1 % (22.0-44.0); MEAN CORPUSCULAR HEMOGLOBIN 29.2 pg (26.0-34.0); MEAN CORPUSCULAR HGB CONC 33.6 G/dL (31.0-37.0); MEAN CORPUSCULAR VOLUME 87 fL (80-100); MONOCYTES # (AUTO) 1.2 K/uL (0.1-1.0); MONOCYTES % (AUTO) 23.2 % (2.0-9.0); NEUTROPHILS # (AUTO) 2.9 K/uL (1.8-7.7); NEUTROPHILS % (AUTO) 57.1 % (40.0-70.0); PLATELET COUNT (AUTO) 206 K/uL (150-450); RED BLOOD CELL COUNT(AUTO) 2.78 MIL/uL (4.50-5.90); RED CELL DISTRIBUTION WIDTH 17.1 % (11.5-14.5)
[2017-11-07 06:18] LABS: ALANINE AMINOTRANSFERASE 47 U/L (12-78); ALBUMIN 2.6 g/dL (3.4-5.0); ALKALINE PHOSPHATASE 142 U/L (46-116); ANION GAP 8 mmol/L (8-16); ASPARTATE AMINOTRANSFERASE 70 U/L (15-37); BILIRUBIN,TOTAL 0.3 mg/dL (0.1-1.0); CALCIUM, TOTAL 8.5 mg/dL (8.8-10.5); CARBON DIOXIDE 24 mmol/L (22-29); CHLORIDE 101 mmol/L (98-107); CREATININE 0.74 mg/dL (0.60-1.30); GLOMERULAR FILTR. RATE CALC > 60 mL/min (>60); GLUCOSE,RANDOM 108 mg/dL (70-110); POTASSIUM 3.5 mmol/L (3.5-5.1); SODIUM SERUM 133 mmol/L (136-145); TOTAL PROTEIN, SERUM 6.7 g/dL (6.4-8.2); UREA NITROGEN, BLOOD 6 mg/dL (7-18)
[2017-11-07] MEDS: PANTOPRAZOLE SODIUM 40 MG DR TABLET PO SCH (07:52)
[2017-11-07] MEDS: SODIUM CHLORIDE 0.9% 1,000 ML IV SCH (07:52)
[2017-11-07] MEDS: DOCUSATE SODIUM 100 MG CAPSULE PO SCH (07:52)
[2017-11-07] MEDS: MULTIVITAMINS WITH MINERALS, THERAPEUTIC TABLET PO SCH (07:52)
[2017-11-07 08:09] VITALS: BP 125/79
[2017-11-07 12:25] VITALS: BP 133/74
== END 2017-11-07 14:50 | DRG 282 ==
LOC: EMS 16:23 → 5S 19:04 → 6N 11-06 16:45
PROVIDERS: ADMIT Internal Medicine; ATTEND Internal Medicine
DX: K85.90 Acute pancreatitis without necrosis or infection, unspecified (principal); E44.0 Moderate protein-calorie malnutrition; K70.30 Alcoholic cirrhosis of liver without ascites; E87.1 Hypo-osmolality and hyponatremia; E86.1 Hypovolemia; F10.129 Alcohol abuse with intoxication, unspecified; E83.42 Hypomagnesemia; Z68.33 Body mass index [BMI] 33.0-33.9, adult
CPT/HCPCS: 70450; 72131; 82948; 82962; 83735; 84132; 92610; 93005; 95816; 96360; 96361; 97110; 97116; 97161; 97530; 99285; G0480; J2060; J3475; J3480; J7030; J7060

== ENCOUNTER 2017-11-09 00:57 | Emergency (ER) | payer MEDICAID ==
[~2017-11-09] VITALS: Ht 162.6 cm; Wt 77.3 kg
[~2017-11-09 00:57] MED LIST changes: +DSS100 PO; +MULT-248 PO; +PANT40TA25 PO; -QUET50TA PO
[2017-11-09 04:45] VITALS: BP 99/63
== END 2017-11-09 05:05 | disposition home or self-care (01) ==
LOC: EMS 00:58
DX: M25.571 Pain in right ankle and joints of right foot (principal); F17.210 Nicotine dependence, cigarettes, uncomplicated
CPT/HCPCS: 99284

== ENCOUNTER 2017-11-14 17:31 | Emergency (ER) | payer MEDICAID ==
[~2017-11-14] VITALS: Ht 180.3 cm; Wt 77.0 kg
[2017-11-14] MEDS ORDERED: QUET100T PO (17:37)
[2017-11-14 21:00] VITALS: BP 126/79
== END 2017-11-14 21:35 | disposition home or self-care (01) ==
LOC: EMS 17:32
DX: M25.571 Pain in right ankle and joints of right foot (principal); F31.9 Bipolar disorder, unspecified; F20.9 Schizophrenia, unspecified; F17.210 Nicotine dependence, cigarettes, uncomplicated; Z79.899 Other long term (current) drug therapy
CPT/HCPCS: 99284

== ENCOUNTER 2017-11-18 11:05 | Inpatient (IN) | payer MEDICAID ==
[~2017-11-18] VITALS: Ht 172.7 cm; Wt 73.5 kg
[~2017-11-18 11:05] MED LIST changes: +QUET100T PO
[2017-11-18 12:13] LABS: BASOPHILS % (AUTO) 0.9 % (0.0-2.0); EOSINOPHILS % (AUTO) 0.6 % (1.0-6.0); HEMATOCRIT 25.5 % (41-53); HEMOGLOBIN 8.7 g/dL (13.5-17.5); LYMPHOCYTES % (AUTO) 40.4 % (22.0-44.0); MEAN CORPUSCULAR HEMOGLOBIN 28.9 pg (26.0-34.0); MEAN CORPUSCULAR VOLUME 85 fL (80-100); MONOCYTES # (AUTO) 0.3 K/uL (0.1-1.0); MONOCYTES % (AUTO) 10.1 % (2.0-9.0); NEUTROPHILS # (AUTO) 1.2 K/uL (1.8-7.7); PLATELET COUNT (AUTO) 298 K/uL (150-450); RED CELL DISTRIBUTION WIDTH 16.9 % (11.5-14.5)
[2017-11-18] MEDS ORDERED: SODIUM CHLORIDE 0.9% 1,000 ML IV ONE ×3 (12:26→15:45)
[2017-11-18 12:29] LABS: ANION GAP 9 mmol/L (8-16); CALCIUM, TOTAL 8.2 mg/dL (8.8-10.5); CARBON DIOXIDE 23 mmol/L (22-29); CHLORIDE 100 mmol/L (98-107); CREATININE 0.46 mg/dL (0.60-1.30); GLOMERULAR FILTR. RATE CALC > 60 mL/min (>60); GLUCOSE,RANDOM 78 mg/dL (70-110); POTASSIUM 3.7 mmol/L (3.5-5.1); SODIUM SERUM 132 mmol/L (136-145); UREA NITROGEN, BLOOD 7 mg/dL (7-18)
[2017-11-18 12:35] LABS: ALANINE AMINOTRANSFERASE 50 U/L (12-78); ALBUMIN 2.7 g/dL (3.4-5.0); ASPARTATE AMINOTRANSFERASE 65 U/L (15-37); BILIRUBIN,TOTAL 0.1 mg/dL (0.1-1.0); TOTAL PROTEIN, SERUM 6.8 g/dL (6.4-8.2)
[2017-11-18 12:43] LABS: B-TYPE NATRIURETIC PEPTIDE 65 pg/mL (0-100)
[2017-11-18 13:07] LABS: ALKALINE PHOSPHATASE 242 U/L (46-116)
[2017-11-18 14:48] LABS: APPEARANCE,URINE CLEAR (CLEAR); BILIRUBIN,URINE NEGATIVE (NEGATIVE); GLUCOSE, URINE (UA) NEGATIVE (NEGATIVE); KETONES,URINE NEGATIVE (NEGATIVE); LEUKOCYTE ESTERASE ,URINE NEGATIVE (NEGATIVE); NITRATE,URINE NEGATIVE (NEGATIVE); OCCULT BLOOD,URINE NEGATIVE (NEGATIVE); PROTEIN,URINE NEGATIVE (NEGATIVE); UROBILINOGEN,URINE 0.2 mg/dL (<=1.0)
[2017-11-18 14:55] LABS: AMPHET/METH SCREEN,URINE NEGATIVE (NEGATIVE); BARBITURATE SCREEN, URINE NEGATIVE (NEGATIVE); BENZODIAZEPINES SCREEN,URINE NEGATIVE (NEGATIVE); CANNABINOID SCREEN,URINE NEGATIVE (NEGATIVE); COCAINE SCREEN,URINE NEGATIVE (NEGATIVE); METHADONE SCREEN, URINE NEGATIVE (NEGATIVE); OPIATE SCREEN,URINE NEGATIVE (NEGATIVE)
[2017-11-18 14:56] LABS: PHENCYCLIDINE SCREEN,URINE NEGATIVE (NEGATIVE)
[2017-11-18] MEDS ORDERED: MAGNESIUM SULFATE 2 GM, MVI, ADULT NO.1 WITH VIT K 10 ML, THIAMINE HCL 100 MG, FOLIC AC... IV ONE ×5 (15:45)
[2017-11-18] MEDS ORDERED: QUEtiapine FUMARATE 100 MG TABLET PO ONE (18:45)
[2017-11-18] MEDS ORDERED: ChlordiazePOXIDE HCL 25 MG CAPSULE PO ONE (18:45)
[2017-11-18] MEDS ORDERED: QUEtiapine FUMARATE 200 MG TABLET PO ONE (18:45)
[2017-11-18] MEDS ORDERED: HALOPERIDOL 5 MG TABLET PO PRN (19:15)
[2017-11-18 21:40] VITALS: BP 92/56
[2017-11-18] MEDS ORDERED: ACETAMINOPHEN 325 MG TABLET PO PRN (22:45)
[2017-11-18] MEDS ORDERED: MAGNESIUM HYDROXIDE SUSPENSION 30 ML UDCUP PO PRN (22:45)
[2017-11-18] MEDS ORDERED: ONDANSETRON HCL 4 MG TABLET PO PRN (22:45)
[2017-11-18] MEDS ORDERED: ALBUTEROL SULFATE HFA 90 MCG/PUFF 8 GM INHALER IH PRN (22:45)
[2017-11-18] MEDS ORDERED: PETROLATUM,WHITE 71 GM JELLY TP PRN (22:45)
[2017-11-18] MEDS ORDERED: IBUPROFEN 600 MG TABLET PO PRN (22:45)
[2017-11-18] MEDS ORDERED: MAG HYDROX/AL HYDROX/SIMETH ES 30 ML SUSPENSION UDCUP PO PRN (22:45)
[2017-11-18] MEDS ORDERED: BACITRACIN 28.4 GM OINTMENT TP PRN (22:45)
[2017-11-18] MEDS ORDERED: BENZOCAINE/MENTHOL LOZENGE MM PRN (22:45)
[2017-11-18] MEDS ORDERED: CloNIDine HCL 0.1 MG TABLET PO PRN (22:45)
[2017-11-18] MEDS ORDERED: LOPERAMIDE HCL 2 MG CAPSULE PO PRN (22:45)
[2017-11-19 04:32] VITALS: BP 135/71
[2017-11-19] MEDS: OMEPRAZOLE 20 MG CAPSULE PO SCH (09:31)
[2017-11-19] MEDS: DOCUSATE SODIUM 100 MG CAPSULE PO SCH (09:31)
[2017-11-19 09:40] VITALS: BP 130/68
[2017-11-19] MEDS: RisperiDONE 0.5 MG TABLET PO SCH (16:29)
[2017-11-19] MEDS: LORazepam 2 MG TABLET PO PRN ×2 (16:29→21:12)
[2017-11-19 18:58] VITALS: BP 144/83
[2017-11-20 03:50] VITALS: BP 144/88
[2017-11-20 06:43] LABS: BASOPHILS % (AUTO) 0.6 % (0.0-2.0); EOSINOPHILS % (AUTO) 0.8 % (1.0-6.0); HEMATOCRIT 24.2 % (41-53); HEMOGLOBIN 8.3 g/dL (13.5-17.5); LYMPHOCYTES # (AUTO) 1.7 K/uL (1.0-4.8); LYMPHOCYTES % (AUTO) 23.4 % (22.0-44.0); MEAN CORPUSCULAR HEMOGLOBIN 28.7 pg (26.0-34.0); MEAN CORPUSCULAR HGB CONC 34.2 G/dL (31.0-37.0); MEAN CORPUSCULAR VOLUME 84 fL (80-100); MONOCYTES # (AUTO) 0.9 K/uL (0.1-1.0); MONOCYTES % (AUTO) 12.4 % (2.0-9.0); NEUTROPHILS # (AUTO) 4.6 K/uL (1.8-7.7); NEUTROPHILS % (AUTO) 62.8 % (40.0-70.0); PLATELET COUNT (AUTO) 261 K/uL (150-450); RED BLOOD CELL COUNT(AUTO) 2.88 MIL/uL (4.50-5.90); RED CELL DISTRIBUTION WIDTH 16.4 % (11.5-14.5)
[2017-11-20 07:18] LABS: % IRON SATURATION 29.2 % (30-44)
[2017-11-20 08:30] VITALS: BP 137/76
[2017-11-20] MEDS: RisperiDONE 0.5 MG TABLET PO SCH ×2 (09:40→16:41)
[2017-11-20] MEDS: OMEPRAZOLE 20 MG CAPSULE PO SCH (09:40)
[2017-11-20] MEDS: MULTIVITAMINS WITH MINERALS, THERAPEUTIC TABLET PO SCH (09:41)
[2017-11-20] MEDS: DOCUSATE SODIUM 100 MG CAPSULE PO SCH (09:41)
[2017-11-20 17:30] VITALS: BP 127/87
[2017-11-20] MEDS: ZOLPIDEM TARTRATE 10 MG TABLET PO PRN (20:52)
[2017-11-21 01:40] VITALS: BP 132/78
[2017-11-21] MEDS: OMEPRAZOLE 20 MG CAPSULE PO SCH (08:26)
[2017-11-21] MEDS: RisperiDONE 0.5 MG TABLET PO SCH ×2 (08:26→17:02)
[2017-11-21] MEDS: DOCUSATE SODIUM 100 MG CAPSULE PO SCH (08:26)
[2017-11-21] MEDS: MULTIVITAMINS WITH MINERALS, THERAPEUTIC TABLET PO SCH (08:27)
[2017-11-21 10:35] VITALS: BP 115/68
[2017-11-21] MEDS: CHOLECALCIFEROL (VIT D3) 1,000 UNITS TABLET PO SCH (12:55)
[2017-11-21] MEDS: ZOLPIDEM TARTRATE 10 MG TABLET PO PRN (20:35)
[2017-11-21 22:33] VITALS: BP 142/79
[2017-11-22 05:33] VITALS: BP 118/73
[2017-11-22] MEDS: DOCUSATE SODIUM 100 MG CAPSULE PO SCH (08:16)
[2017-11-22] MEDS: RisperiDONE 0.5 MG TABLET PO SCH ×2 (08:16→16:18)
[2017-11-22] MEDS: MULTIVITAMINS WITH MINERALS, THERAPEUTIC TABLET PO SCH (08:16)
[2017-11-22] MEDS: CHOLECALCIFEROL (VIT D3) 1,000 UNITS TABLET PO SCH (08:17)
[2017-11-22] MEDS: OMEPRAZOLE 20 MG CAPSULE PO SCH (08:17)
[2017-11-22 10:20] VITALS: BP 135/57
[2017-11-22 16:19] VITALS: BP 142/73
[2017-11-22] MEDS: ZOLPIDEM TARTRATE 10 MG TABLET PO PRN (20:22)
[2017-11-23] MEDS: MULTIVITAMINS WITH MINERALS, THERAPEUTIC TABLET PO SCH (09:57)
[2017-11-23] MEDS: LORazepam 2 MG TABLET PO PRN (09:57)
[2017-11-23] MEDS: CHOLECALCIFEROL (VIT D3) 1,000 UNITS TABLET PO SCH (09:57)
[2017-11-23] MEDS: OMEPRAZOLE 20 MG CAPSULE PO SCH (09:57)
[2017-11-23] MEDS: RisperiDONE 0.5 MG TABLET PO SCH ×2 (09:58→16:52)
[2017-11-23] MEDS: DOCUSATE SODIUM 100 MG CAPSULE PO SCH (09:58)
[2017-11-23 10:55] VITALS: BP 152/87
[2017-11-23] MEDS ORDERED: RISP.5 PO (16:51)
[2017-11-23] MEDS ORDERED: CHOL100062 PO (17:17)
[2017-11-23] MEDS ORDERED: MULT-591 PO (17:23)
== END 2017-11-23 18:00 | disposition home or self-care (01) | DRG 751 ==
LOC: EMS 11:06 → 3EI 20:48
PROVIDERS: ADMIT Psychiatry & Neurology Psychiatry; ATTEND Psychiatry & Neurology Psychiatry
DX: F29 Unspecified psychosis not due to a substance or known physiological condition (principal); R45.851 Suicidal ideations; E87.1 Hypo-osmolality and hyponatremia; E83.51 Hypocalcemia; F20.0 Paranoid schizophrenia; D64.9 Anemia, unspecified; S93.401A Sprain of unspecified ligament of right ankle, initial encounter; F10.239 Alcohol dependence with withdrawal, unspecified; R00.0 Tachycardia, unspecified; J44.9 Chronic obstructive pulmonary disease, unspecified; X58.XXXA Exposure to other specified factors, initial encounter; R26.9 Unspecified abnormalities of gait and mobility; D72.819 Decreased white blood cell count, unspecified; E86.0 Dehydration; F10.229 Alcohol dependence with intoxication, unspecified; F17.210 Nicotine dependence, cigarettes, uncomplicated; Z59.0 Homelessness; Z79.899 Other long term (current) drug therapy; Z71.41 Alcohol abuse counseling and surveillance of alcoholic; Z71.6 Tobacco abuse counseling; Y93.89 Activity, other specified; Y92.89 Other specified places as the place of occurrence of the external cause; Y99.8 Other external cause status
CPT/HCPCS: 82306; 83540; 83550; 83605; 84295; 87040; 87081; 93005; 96361; 96374; 99285; G0480; J3411; J3475; J3490; J3535; J7030

== ENCOUNTER 2017-12-09 18:47 | Emergency (ER) | payer MEDICAID ==
[~2017-12-09] VITALS: Ht 180.3 cm; Wt 77.3 kg
[~2017-12-09 18:47] MED LIST changes: +CHOL100062 PO; -DSS100 PO; -MULT-248 PO; +MULT-591 PO; -PANT40TA25 PO; -QUET100T PO; +RISP.5 PO
[2017-12-09] MEDS ORDERED: LORazepam 1 MG TABLET PO ONE (20:45)
[2017-12-09 20:51] VITALS: BP 127/85
== END 2017-12-09 20:58 | disposition home or self-care (01) ==
LOC: EMS 18:48
DX: M25.571 Pain in right ankle and joints of right foot (principal); M79.89 Other specified soft tissue disorders; F17.210 Nicotine dependence, cigarettes, uncomplicated; Z76.0 Encounter for issue of repeat prescription
CPT/HCPCS: 99282; 99283

== ENCOUNTER 2017-12-10 19:06 | Emergency (ER) | payer MEDICAID ==
[~2017-12-10] VITALS: Ht 172.7 cm; Wt 79.5 kg
[2017-12-10] MEDS ORDERED: IBUPROFEN 800 MG TABLET PO ONE (19:45)
[2017-12-10 20:42] VITALS: BP 105/67
[2017-12-10] MEDS ORDERED: LORazepam 0.5 MG TABLET PO ONE (21:00)
== END 2017-12-10 21:26 | disposition home or self-care (01) ==
LOC: EMS 19:07
DX: M25.571 Pain in right ankle and joints of right foot (principal); F17.210 Nicotine dependence, cigarettes, uncomplicated; Z76.0 Encounter for issue of repeat prescription
CPT/HCPCS: 99283